=== PATIENT | female | born 2000 ===

== ENCOUNTER 2020-07-19 20:31 | Inpatient (IN) | payer MEDICAID, OTHER ==
[2020-07-19] MEDS ORDERED: TERBUTALINE 1 MG/1 ML INJ SUB-Q PRN (22:53)
[2020-07-19] MEDS ORDERED: MINERAL OIL 30 ML ORAL LIQD PO PRN (22:53)
[2020-07-19] MEDS ORDERED: LIDOCAINE (2%) 20 MG/1 ML VIAL 20 ML MDV INFILTRATI ONE (22:53)
[2020-07-19] MEDS ORDERED: ePHEDrine SULFATE 50 MG/1 ML INJ IV PRN (22:53)
[2020-07-19] MEDS ORDERED: OXYTOCIN DRIP 30 UNITS/500 ML BAG IV SCH ×2 (23:00)
[2020-07-20] MEDS ORDERED: DINOPROSTONE 10 MG VAG SUPP VG ONE ×2 (00:20→13:24)
[2020-07-20] MEDS: LACTATED RINGERS 1,000 ML IV SCH ×4 (00:23→20:44)
--- NOTE | 2020-07-20 01:00 | History and Physical Report ---
History of Present Illness Date of examination: 07/19/20 Date of admission: 07/19/2020 Chief complaint: Here for scheduled induction of labor. History of present illness: 19 year old here for scheduled induction of labor. Patient received care at [facility] and records are available. LMP 10/06/2019. EDC 07/12/2020. EGA 41 weeks. significant for the following: teenager. labs are as follows: O+, antibody screen negative, rubella immune, hepatitis B surface antigen negative, HIV negative, RPR nonreactive, gonorrhea negative, chlamydia negative, GBS negative, AFP negative, 1 hour sugar test 124, AFP negative. 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 denies: smoking, alcohol abuse, prescription drug abuse, IV drug use - Obstetrical History : 1 Para: 0 Hx # Term Pregnancies: 0 Number of Pregnancies: 0 Spontaneous Abortions: 0 Induced : 0 Number of Living Children: 0 Medications and Allergies Allergies Allergy/AdvReac Type Severity Reaction Status Date / Time No Known Allergies Allergy Verified 07/19/20 22:43 Home Medications Medication Instructions Recorded Confirmed Last Taken Type One Daily Tablet 1 tab PO DAILY 07/19/20 07/19/20 06/22/20 History Active Meds: Active Medications Ephedrine Sulfate (Ephedrine Sulfate 50 Mg/1 Ml Inj) 10 mg IV Q2M PRN PRN Reason: Hypotension Fentanyl (Fentanyl 100 Mcg/2 Ml Inj) 100 mcg IV Q2H PRN PRN Reason: Pain,Severe (7-10) LABOR PAIN Oxytocin/Sodium Chloride (Pitocin/Ns 30 Unit/500ml) 30 units in 500 mls @ 2 mls/hr IV TITR RUFUS; Protocol Lactated Ringer's (Lactated Ringers) 1,000 mls @ 125 mls/hr IV DIRECT RUFUS Last Admin: 07/20/20 00:23 Dose: 125 mls/hr Documented by: Oxytocin/Sodium Chloride (Pitocin/Ns 30 Unit/500ml) 30 units in 500 mls @ 40 mls/hr IV TITR RUFUS; Protocol Mineral Oil (Mineral Oil 30 Ml Oral Liqd) 30 ml PO QHS PRN PRN Reason: Constipation Terbutaline Sulfate (Terbutaline 1 Mg/1 Ml Inj) 0.25 mg SUB-Q ONCE PRN PRN Reason: Hyperstimulation/Hypertonicity Review of Systems All systems: negative (irregular mild contraction) - Vital Signs Vital signs: Vital Signs Pulse BP 90 127/82 07/19/20 22:04 07/19/20 22:04 Temp Pulse Resp BP Pulse Ox 98.3 F 88 20 110/69 96 07/19/20 22:45 07/20/20 00:53 07/19/20 22:45 07/20/20 00:32 07/20/20 00:53 - Physical Exam Abdomen: Positive: normal appearance, soft. Negative: distention, tenderness, guarding, rigidity Genitourinary (Female): Positive: normal external genitalia, normal perenium. Negative: perineal/vulvar lesions Vagina: Positive: normal moisture Uterus: Positive: enlarged. Negative: tender Anus/Rectum: Positive: normal perianal skin Extremities: Positive: normal. Negative: tenderness, edema - Obstetrical FHR: category 1 Uterine Contraction Monitor Mode: External Cervical Dilatation: 0 Cervical Effacement Percentage: 50 station: -2 Uterine Contraction Intensity: Mild (rare mild contraction) Results All other labs normal. Assessment and Plan A: at 41 weeks gestation. GBS negative. P: Admit. EFM. Cervidil cervical ripening. Discussed with patient risks and benefits of cervical ripening and induction of labor. Patient consented to cervical ripening and induction of labor.
[2020-07-20 01:07] LABS: Hematocrit 36.1 % (30.3-42.9); Hemoglobin 12.7 gm/dl (10.1-14.3); Mean Corpuscular HGB Conc 35 % (30-34); Mean Corpuscular Volume 90 fl (79-97); Platelet Count 269 K/mm3 (140-440); Red Cell Distribution Width 13.9 % (13.2-15.2)
--- NOTE | 2020-07-20 01:08 | Ultrasound Report ---
Examination: Ultrasound Obstetrical Limited, 07/19/2020 INDICATION: Limited obstetrical evaluation was requested to evaluate presentation. COMPARISON: None FINDINGS: There is a single living intrauterine . Fetus is in the cephalic presentation. heart rate =137 bpm. IMPRESSION: 1. Limited obstetrical ultrasound as above. Signer Name: Lesly Langston MD Signed: 07/20/2020 1:03 AM Workstation Name: [id number]
--- NOTE | 2020-07-20 12:26 | Event Note ---
Date: 07/20/20 S/p cervidil #1. Will let patient eat/shower and proceed with cervidil #2. Likely for pitocin afterwards.
[2020-07-20] MEDS: fentaNYL 100 MCG/2 ML INJ IV PRN (15:06)
[2020-07-20] MEDS ORDERED: ePHEDrine SULFATE 50 MG/1 ML INJ IV PRN (15:58)
[2020-07-20] MEDS ORDERED: NALOXONE 2 MG/2 ML INJ IV PRN (15:58)
--- NOTE | 2020-07-20 15:59 | Anesthesia Consultation ---
Anesthesia Consult and Med Hx Date of service: 07/20/20 - Airway Anesthetic Teeth Evaluation: Good ROM Head & Neck: Adequate Mental/Hyoid Distance: Adequate Mallampati Class: Class II Intubation Access Assessment: Probably Good - Pulmonary Exam CTA: Yes - Cardiac Exam Cardiac Exam: RRR - Pre-Operative Health Status ASA Pre-Surgery Classification: ASA2 Proposed Anesthetic Plan: Epidural - Pulmonary Hx Asthma: No - Cardiovascular System Hx Hypertension: No - Central Nervous System Hx Seizures: No Hx Psychiatric Problems: No - Endocrine Hx Renal Disease: No Hx Hypothyroidism: No Hx Hyperthyroidism: No - Hematic Hx Anemia: No Hx Sickle Cell Disease: No - Other Systems Hx Alcohol Use: No
--- NOTE | 2020-07-20 17:49 | Progress Note ---
Labor Epidural - Labor Epidural Start Time: 17:37 Stop Time: 17:45 Performed by:: GOPAL KOO Procedure: Patient is requesting epidural for labor pain. H&P, and labs reviewed. Procedure explained, questions answered, consent obtained. Patient in sitting position with blood pressure cuff and pulse ox on and working. Timeout performed immediately before start of procedure. Sterile chlorahexadine 0.5% prep/drape. 3 mL 1% lidocaine skin wheal at L[3]-L[4]. 18-gauge [employer] epidural needle advanced to [id number] with saline at [7] cm. Epidural catheter advanced to [12] cm, negative aspiration for blood and csf, negative test dose 3 ml 1.5% lidocaine with epinephrine. Epidural dexmedetomidine [30] mcg administered. Sterile steri-strips and tegaderm applied, followed by tape reinforcement. Patient tolerated procedure well. Wilber KEENAN
[2020-07-20] MEDS: fentaNYL-BUPIV 2 MCG/ML-0.125% 200 MCG/100 ML BAG EPIDURAL SCH (17:55)
[2020-07-21] MEDS ORDERED: ACETAMINOPHEN 325 MG TAB PO ONE (00:47)
[2020-07-21] MEDS ORDERED: GENTAMICIN/NS 80 MG/100 ML 100 ML IV SCH (01:00)
[2020-07-21] MEDS: AMPICILLIN/NS 1 GM/50 ML 1 GM/50 ML BAG IV SCH ×4 (01:23→16:27)
[2020-07-21] MEDS: GENTAMICIN/NS 100 MG/100 ML 100 MG/100 ML BAG IV SCH ×3 (02:00→23:37)
[2020-07-21] MEDS: fentaNYL-BUPIV 2 MCG/ML-0.125% 200 MCG/100 ML BAG EPIDURAL SCH (03:58)
[2020-07-21] MEDS ORDERED: BUPIVACAINE/PF (0.25%) 2.5 MG/ML 10 ML VIAL INFILTRATI ONE (04:25)
[2020-07-21] MEDS: LACTATED RINGERS 1,000 ML IV SCH (05:31)
--- NOTE | 2020-07-21 08:51 | Event Note ---
Date: 07/21/20 Assumed care of patient at 08:00 AM. SVE: anterior lip, -1 to 0 station, fetus in OP position. Patient positioned in left lateral position with peanut ball. Reassuring FHR tracing. Patient is receiving IV antibiotics and is afebrile at this time. Patient is receiving Pitocin at 12 mu/minute.
--- NOTE | 2020-07-21 10:46 | Event Note ---
Date: 07/21/20 Cervix complete at 08:15 a.m. Patient has now pushed for total of 1 hour and 30 minutes with minimal change in station (0 station, +1 station with pushing); has pushed in sidelying, sitting, hands and knees, squatting, and semi-fowlers positions. Epidural has been turned off for better maternal pushing effort. Temp 99.5 orally. IV ampicillin and gentamicin continue. FHR 155-160 with minimal to moderate variability, accelerations, and no decelerations. Regular contractions. Uterus palpates soft between contractions. Called Dr. Combs at 10:46 and informed him of all of the above. MD in agreement with plan to rest patient for 30 minutes, then try again to push.
[2020-07-21] MEDS ORDERED: LIDOCAINE (2%) 20 MG/1 ML VIAL 20 ML MDV INFILTRATI ONE (11:16)
[2020-07-21] MEDS: fentaNYL 100 MCG/2 ML INJ IV PRN (12:13)
[2020-07-21] MEDS ORDERED: LANOLIN/ZINC/DIMETHICONE (LANSINOH) 7 GM TP PRN (12:44)
[2020-07-21] MEDS ORDERED: MAGNESIUM HYDROXIDE (MOM) ORAL LIQD UDC PO PRN (12:44)
[2020-07-21] MEDS ORDERED: HYDROcodone/ACETAMINOPHEN 5-325 MG TAB PO PRN (12:44)
[2020-07-21] MEDS ORDERED: WITCH HAZEL/ GLYCERIN PAD TP PRN (12:44)
--- NOTE | 2020-07-21 12:56 | Procedure Note ---
OB Delivery Note - Delivery Date of Delivery: 07/28/20 Surgeon: THANIA JIM Estimated blood loss: other (250 cc) - Vaginal Delivery presentation: vertex Delivery position: OA Intrapartum events: shoulder dystocia Delivery induction: oxytocin Delivery monitor: external FHT, external uterine Delivery placenta: spontaneous Delivery cord: 3 umbilical vessels Episiotomy: midline Delivery laceration: 2nd degree Delivery repair: vicryl Anesthesia: local, epidural Delivery comments: Spontaneous vaginal delivery at 11:25 of liveborn male weighing 8 lbs. 1.3 oz. over 2nd degree MLE with apgars of 7/9. No nuchal cord. Right anterior shoulder dystocia resolved with McRobert's maneuver and suprapubic pressure. Head to body interval less than 1 minute. Terminal meconium noted upon of body. Baby placed skin to skin with mom immediately after . 3 vessel cord double clamped and cut and baby taken to radiant warmer for suctioning and stim ulation. Spontaneous cry and respirations. Cord blood obtained. Spontaneous delivery of intact placenta and membranes by romero mechanism. EBL 250 cc. Pitocin to IV fluids. Fundus firm and midline. 2nd degree MLE and vaginal laceration repaired with 2-0 vicryl in usual sterile fashion. No other lacerations noted. Vaginal sweep negative. Sponge count correct. Mother and baby stable. Baby moving all extremities well.
[2020-07-21] MEDS: IBUPROFEN 600 MG TAB PO SCH (16:26)
[2020-07-21] MEDS: DOCUSATE SODIUM 100 MG CAP PO SCH ×2 (16:26→23:38)
[2020-07-21] MEDS ORDERED: LACTATED RINGERS 1,000 ML IV SCH (16:45)
[2020-07-22] MEDS: AMPICILLIN/NS 1 GM/50 ML 1 GM/50 ML BAG IV SCH ×2 (01:09→05:58)
[2020-07-22] MEDS: GENTAMICIN/NS 100 MG/100 ML 100 MG/100 ML BAG IV SCH (06:27)
[2020-07-22 09:25] LABS: Basophils % (Auto) 0.2 % (0.0-1.8); Eosinophils # (Auto) 0.1 K/mm3 (0.0-0.4); Eosinophils % (Auto) 0.4 % (0.0-4.3); Hematocrit 31.2 % (30.3-42.9); Hemoglobin 10.7 gm/dl (10.1-14.3); Lymphocytes # (Auto) 2.6 K/mm3 (1.2-5.4); Lymphocytes % (Auto) 16.9 % (13.4-35.0); Mean Corpuscular HGB Conc 34 % (30-34); Mean Corpuscular Volume 91 fl (79-97); Monocytes # (Auto) 0.8 K/mm3 (0.0-0.8); Monocytes % (Auto) 4.9 % (0.0-7.3); Platelet Count 222 K/mm3 (140-440); Red Blood Count 3.43 M/mm3 (3.65-5.03); Red Cell Distribution Width 14.3 % (13.2-15.2)
[2020-07-22] MEDS: DOCUSATE SODIUM 100 MG CAP PO SCH (09:28)
[2020-07-22] MEDS: IBUPROFEN 600 MG TAB PO SCH (09:28)
--- NOTE | 2020-07-22 11:35 | Progress Note ---
Assessment and Plan A: PP Day #1 Stable P: Follow Routine Orders D/C home today per patient request RTO in 6 Weeks Subjective - Subjective Date of service: 07/22/20 Patient reports: appetite normal, voiding normally, pain well controlled, flat us, ambulating normally : doing well, bottle feeding (and ) Objective - Vital Signs Latest vital signs: Vital Signs Temp Pulse Resp BP BP Pulse Ox 07/22/20 08:11 98 F 94 H 18 111/66 98 07/22/20 00:55 98.7 F 96 H 18 103/59 98 07/21/20 21:26 98.6 F 107 H 18 106/56 96 07/21/20 17:57 98.6 F 102 H 18 110/56 96 07/21/20 14:20 98.0 F 85 18 115/73 97 07/21/20 14:00 98.0 F 07/21/20 13:47 94 H 99 07/21/20 13:42 104 H 99 07/21/20 13:41 106 H 122/71 07/21/20 13:37 97 H 99 07/21/20 13:32 98 H 99 07/21/20 13:27 102 H 98 07/21/20 13:22 106 H 100 07/21/20 13:17 112 H 100 07/21/20 13:12 107 H 99 07/21/20 13:10 101 H 124/69 07/21/20 13:07 104 H 99 07/21/20 13:02 101 H 100 07/21/20 12:57 98 H 99 07/21/20 12:55 112 H 120/62 07/21/20 12:52 100 H 99 07/21/20 12:47 100 H 99 07/21/20 12:42 104 H 100 07/21/20 12:37 108 H 100 07/21/20 12:32 102 H 99 07/21/20 12:27 97 H 98 07/21/20 12:26 99 H 118/79 07/21/20 12:22 109 H 98 07/21/20 12:17 90 97 07/21/20 12:12 94 H 99 07/21/20 12:07 102 H 100 07/21/20 12:02 105 H 99 07/21/20 11:58 31 L 91 07/21/20 11:57 87 Intake and Output 06/13/21 06/14/21 06/14/21 22:59 06:59 14:59 Intake Total 206 650 Output Total 350 Balance -144 650 Intake: IV 50 150 AMPICILLIN/NS 1 GM/50 ML 50 50 1 gm In 50 ml @ 100 mls/ hr IV Q4H RUFUS Rx#: [id number] GENTAMICIN/NS 100 MG/100 100 ML 100 mg In 100 ml @ 133 .333 mls/hr IV Q8H [facility] Rx #:[id number] Oral 120 Intake, Free Water 36 500 Output: Urine 350 Void 350 Other: Total, Intake Amount 120 Total, Output Amount 350 # Voids Void 1 2 - Exam Breasts: Present: normal Cardiovascular: Present: Regular rate Lungs: Present: Clear to auscultation, Normal air movement Abdomen: Present: normal appearance, soft, normal bowel sounds Uterus: Present: normal, firm, fundal height below umbilicus Extremities: Present: normal - Labs Labs: Abnormal lab results 07/22/20 Range/Units 08:22 WBC 15.6 H (4.5-11.0) K/mm3 RBC 3.43 L (3.65-5.03) M/mm3 Seg Neutrophils % 77.6 H (40.0-70.0) % Seg Neutrophils # 12.1 H (1.8-7.7) K/mm3
--- NOTE | 2020-07-22 11:36 | Discharge Summary ---
Providers - Providers Date of Admission: 07/20/20 04:19 Date of discharge: 07/22/20 Attending physician: LATA SANTOS JR, MD Primary care physician: LATA SANTOS JR, MD Hospitalization Reason for admission: active labor Delivery: Episiotomy: none Laceration: 2nd degree Other procedures: none complications: none Discharge diagnosis: IUP at term delivered [place] baby: male Condition at discharge: Good Disposition: DC-01 TO HOME OR SELFCARE Plan - Provider Discharge Summary Activity: routine, no sex for 6 weeks, no heavy lifting 4 weeks, no strenuous exercise Diet: routine Instructions: routine Additional instructions: [] Smoking cessation referral if applicable(refer to patient education folder for contact #) [] Refer to [facility]'s [facility] Booklet Call your doctor immediately for: * Fever > 100.5 * Heavy vaginal bleeding ( >1 pad per hour) * Severe persistent headache * Shortness of breath * Reddened, hot, painful area to leg or breast * Drainage or odor from incision. * Keep incision clean and dry at all times and follow doctor's instructions regarding bathing/showering - Follow up plan Follow up: LATA SANTOS JR, MD [Primary Care Provider] - 6 Weeks
[2020-07-22 13:28] VITALS: BP 96/55
== END 2020-07-22 14:35 | disposition home or self-care (01) | DRG 807 ==
LOC: TRG 20:31 → LD 20:32 → APU 07-20 04:19 → LD 07-20 04:28 → OB 07-21 14:15
PROVIDERS: ADMIT Obstetrics & Gynecology; ATTEND Obstetrics & Gynecology
PROC: 0KQM0ZZ Repair Perineum Muscle, Open Approach (ICD-10-PCS; 2020-07-20)
PROC: 3E0R3BZ Introduction of Anesthetic Agent into Spinal Canal, Percutaneous Approach (ICD-10-PCS; 2020-07-20)
PROC: 00HU33Z Insertion of Infusion Device into Spinal Canal, Percutaneous Approach (ICD-10-PCS; 2020-07-20)
PROC: 3E033VJ Introduction of Other Hormone into Peripheral Vein, Percutaneous Approach (ICD-10-PCS; 2020-07-20)
PROC: 10E0XZZ Delivery of Products of Conception, External Approach (ICD-10-PCS; principal; 2020-07-21)
DX: O48.0 Post-term pregnancy (principal); Z37.0 Single live birth; Z3A.41 41 weeks gestation of pregnancy; O70.1 Second degree perineal laceration during delivery; O77.0 Labor and delivery complicated by meconium in amniotic fluid; Z20.822 Contact with and (suspected) exposure to COVID-19
CPT/HCPCS: 36415; 59200; 76815; 85025; 85027; 86592; 86850; 86900; 86901; 88307; 99211; G0378; A6250; G0463; J0290; J1580; J2590; J3010; J7120; U0003